=== PATIENT | male | born 1955 | race Caucasian/White ===

== ENCOUNTER 2019-12-24 07:20 | Outpatient (CLI) | payer MEDICARE, OTHER ==
--- NOTE | 2019-12-24 08:37 | Ultrasound Report ---
PROCEDURE: Bladder INDICATIONS: LOWER URINARY TRACT SYMPTOMS TECHNIQUE: Real-time transabdominal scanning was performed of the urinary bladder and prostate, with image docum entation COMPARISON: None. FINDINGS: The prostate measures approximately 5.2 x 5.5 x 6.2 cm,, yielding an approximate volume of 92 mL. No urinary bladder wall thickening or trabeculation. IMPRESSION: Mild prostatomegaly. No urinary bladder wall thickening or trabeculation. Reviewed by: Jacoby Martinez MD on 12/24/2019 8:36 AM PST Approved by: Jacoby Martinez MD on 12/24/2019 8:36 AM PST Station ID: [id number]
== END 2019-12-24 07:21 | disposition home or self-care (01) ==
LOC: DI 07:20
PROVIDERS: ATTEND Internal Medicine
DX: N40.0 Benign prostatic hyperplasia without lower urinary tract symptoms (principal)
CPT/HCPCS: 76857

== ENCOUNTER 2021-02-01 08:02 | Day surgery (SDC) | payer MEDICARE, OTHER ==
[2021-02-01] MEDS ORDERED: LACTATED RINGERS 1,000 ML IV ONE ×2 (08:29→09:44)
--- NOTE | 2021-02-01 08:46 | ANESTHESIA ---
Pre-Anesthesia VS, & Labs - Diagnosis screening - Procedure colonoscopy w/possible biopsy Vital Signs: Temp Pulse Resp BP Pulse Ox 36.5 C 85 18 155/92 H 99 02/01/21 08:14 02/01/21 08:14 02/01/21 08:14 02/01/21 08:14 02/01/21 08:14 Height: 5 ft 8 in Weight (kg): 89.4 kg Body Mass Index: 29.9 BMI Classification: Overweight - NPO >8 hours - Lab Results Lab results reviewed: Yes Home Medications and Allergies Home Medications: Ambulatory Orders Tamsulosin [Flomax] 1 cap PO DAILY 01/31/21 Tamsulosin [Flomax] 1 cap PO DAILY 01/31/21 Allergies/Adverse Reactions: Allergies Allergy/AdvReac Type Severity Reaction Status Date / Time No Known Drug Allergies Allergy Verified 10/29/13 13:31 Anes History & Medical History - Anesthetic History Anesthesia Complications: reports: No previous complications Family history of Anesthesia Complications: Denies Family history of Malignant Hyperthermia: Denies - Medical History Cardiovascular: reports: None Pulmonary: reports: None Gastrointestinal: reports: None Urinary: reports: None Musculoskeletal: reports: None Endocrine/Autoimmune: reports: None Skin: reports: None - Surgical History Eyes Ears Nose Throat (EENT): reports: Tonsil/Adenoidectomy Exam General: Alert, Oriented x3, Cooperative Dental: WNL Mouth Opening: Greater than 4 Fingerbreadths Neck Mobility: Normal Mallampati classification: II Thyromental Distance: 4-6 cm Respiratory: Lungs clear, Normal breath sounds, No respiratory distress Cardiovascular: Regular rate Neurological: Normal speech Mental/Cognitive Status: Alert/Oriented X3, Normal for patient Cognitive Status: Within normal limits Plan Anesthesia Type: Total IV Consent for Procedure(s) Verified and Reviewed: Yes Code Status: Attempt Resuscitation ASA classification: 2-Mild systemic disease Is this case an emergency?: No
[2021-02-01] MEDS ORDERED: PROPOFOL 200 MG/20 ML VIAL IVP ONE (09:42)
[2021-02-01] MEDS ORDERED: LIDOCAINE-MPF 2% 5 ML VIAL ONE (09:42)
[2021-02-01 10:08] VITALS: BP 126/77
--- NOTE | 2021-02-01 10:22 | ANESTHESIA POST OP EVALUATION ---
Anesthesia Post Eval - Post Anesthesia Eval Vitals: Last Vital Signs Temp 36.3 C L 02/01/21 10:00 Pulse 61 02/01/21 10:00 Resp 17 02/01/21 10:00 BP 126/77 02/01/21 10:00 Pulse Ox 99 02/01/21 10:00 CV Function Including HR & BP: Stable Pain Control: Satisfactory Nausea & Vomiting: Negative Mental Status: Baseline Respiratory Status: Airway Patent Hydration Status: Satisfactory Anesthesia Complications: None
== END 2021-02-01 08:03 | disposition home or self-care (01) ==
LOC: SDS 08:02
PROVIDERS: ATTEND Surgery
DX: Z12.11 Encounter for screening for malignant neoplasm of colon (principal); K57.30 Diverticulosis of large intestine without perforation or abscess without bleeding; Z86.010 Personal history of colon polyps
CPT/HCPCS: G0105; J7120

== ENCOUNTER 2021-06-22 09:19 | Outpatient (CLI) | payer MEDICARE, OTHER ==
[2021-06-22 15:22] LABS: PSA TOTAL 5.612 ng/mL (0.000-2.000)
[2021-06-22 15:48] LABS: PSA FREE 1.562 ng/mL (0.16-2.81)
== END 2021-06-22 09:20 | disposition home or self-care (01) ==
LOC: LAB.S 09:19
PROVIDERS: ATTEND Internal Medicine
DX: R97.20 Elevated prostate specific antigen [PSA] (principal)
CPT/HCPCS: 36415; 84153; 84154